=== PATIENT | female | born 1995 ===

== ENCOUNTER 2016-12-21 13:27 | Emergency (ER) | payer SELFPAY ==
[~2016-12-21] VITALS: Ht 167.6 cm; Wt 104.5 kg
[2016-12-21 13:32] VITALS: Ht 167.6 cm; Wt 104.5 kg
== END 2016-12-21 16:00 | disposition left against medical advice (07) ==
LOC: FTE 13:27
DX: Z53.21 Procedure and treatment not carried out due to patient leaving prior to being seen by health care provider (principal)
CPT/HCPCS: 93005